=== PATIENT | male | born 1955 | race Caucasian/White ===

== ENCOUNTER 2021-01-05 10:58 | Outpatient (CLI) | payer BC | END 2021-01-05 10:59 | disposition home or self-care (01) | LOC: CSHULT 10:58 | PROVIDERS: ATTEND Internal Medicine | DX: E80.6 Other disorders of bilirubin metabolism (principal); K76.89 Other specified diseases of liver; Z90.49 Acquired absence of other specified parts of digestive tract | CPT/HCPCS: 76705 ==